=== PATIENT | male | born 1960 | race Caucasian/White ===

== ENCOUNTER 2019-07-05 21:38 | Emergency (ER) | payer BC ==
--- OUTSIDE RECORDS SUMMARY | 2019-07-05 21:41 | XMS REPORT ---
:1960 Author Organization [facility] Address [address] [place] [address] [address]. [address] [place] [address] Care Team Providers Name Role Phone Unavailable Unavailable Unavailable Payers Payer Name Policy Type Policy Number Effective Date Expiration Date Problems This patient has no known problems. Allergies, Adverse Reactions, Alerts Allergy Allergy Status Severity Reaction(s) Onset Inactive Treating Comments Name Type Date Date Clinician No Known DA Active U 2018-04 Allergies -30 00:00:0 0 No Known DA Active U 2018-04 Allergies -27 00:00:0 0 Medications This patient has no known medications. Results Test Description Test Time Test Comments Text Results Atomic Results Result Comments SURGICAL 2018-05-20 RUN DATE: SPECIMENS 07:45:00 05/20/18 [facility] *LIVE* PAGE 1 RUN TIME: 744 Specimen Inquiry RUN USER: INTERFACE PATIENT: EDIN DU LOC: CR #: [id number] AGE/SX: 58/M ROOM: RE05/14/18REG DR: Juan Carlos Sterling III : 62 BED: DIS: [place] [facility] [place] SPEC #: [id number] RECD: 05/17/18 STATUS: [facility] # : [id number] [place]: 05/17/[address] [facility] [address]: Juan Carlos Sterling III, MD ENTERED: 05/19/18 SP TYPE: SURG SPEC OTHR DR: Frederick Vale MD ORDERED: GM LEVEL 4 CODES: [id number] - NOSE, NOS COPIES TO: Frederick Vale MD [facility] [place], [place] [id number] Juan Carlos Sterling III, MD [address] [place] [address] [address] [place], [place] [address] PROCEDURES: GM LEVEL 4 ( Incomplete) TISSUES: 1. NOSE, NOS - Nasal cavity, septum 2. NOSE, NOS - Nasal cavity, inferior turbinate FINAL DIAGNOSIS Nasal cavity, septum: Gross examination only. Nasal cavity, inferior turbinate: Chronic sinusitis. GROSS AND MICROSCOPIC GROSS EXAMINATION: Received in formalin labeled nasal septum is a 2.2 cm aggregate of fibrocartilaginous tissue, gross examination only. Received in formalin labeled inferior turbinates is a 1.1 cm aggregate of anthony-carter tissue fragments submitted in one cassette. MICROSCOPIC EXAMINATION: Sections of the inferior turbinate reveal portions of respiratory epithelium with thickened basement membranes and mild chronic inflammation. CONTINUED ON NEXT PAGE RUN DATE: 05/20/18 [facility] *LIVE* PAGE 2 RUN TIME: 0745 Specimen Inquiry RUN USER: INTERFACE SPEC #: [id number] PATIENT: EDIN DU #[id number] (Continued) POST-OP DIAGNOSIS Sinusitis, mika bullosa PRE-OP DIAGNOSIS Sinusitis, mika bullosa Signed SIGNATURE ON Kai Ireland DO 0745 END OF REPORT
[2019-07-05] MEDS ORDERED: DIAZEPAM 5 MG TABLET ONE (23:35)
[2019-07-05] MEDS ORDERED: HYDROCODONE/APAP 7.5/325 MG TAB ONE (23:36)
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
[2019-07-06] MEDS ORDERED: KETOROLAC 30 MG/ML INJ ONE (02:05)
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
[2019-07-06 17:19] VITALS: TEMP 97.4
[2019-07-06 17:24] VITALS: O2SAT 100
[2019-07-06 17:26] VITALS: BP 142/72
== END 2019-07-06 02:37 | disposition home or self-care (01) ==
LOC: ER 21:38
DX: M54.12 Radiculopathy, cervical region (principal); M54.5 Low back pain; E78.00 Pure hypercholesterolemia, unspecified; V59.40XA Driver of pick-up truck or van injured in collision with unspecified motor vehicles in traffic accident, initial encounter
CPT/HCPCS: 70450; 71250; 72125; 96372; 99283

== ENCOUNTER 2020-07-28 01:45 | Emergency (ER) | payer BC ==
[2020-07-28] MEDS ORDERED: TRAMADOL HCL 50 MG TAB ONE ×2 (02:30→02:32)
[2020-07-28] MEDS ORDERED: TETANUS & DIPHTHERIA TOX,ADULT 0.5 ML VIAL ONE (03:11)
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
[2020-07-28] MEDS ORDERED: AMOX/K CLAV 875 MG TAB ONE (03:53)
[2020-07-28] MEDS ORDERED: MUPIROCIN 2% OINT 22GM TUBE TOP ONE (03:54)
[2020-07-28 04:00] VITALS: TEMP 98.7
[2020-07-28 04:01] VITALS: BP 168/72; O2SAT 98
--- NOTE | 2020-07-28 11:48 | RAD REPORT ---
EXAM DESCRIPTION: RAD - Foot Left 2 View - 07/28/2020 2:24 am CLINICAL HISTORY: PAIN COMPARISON: No comparisons FINDINGS: Lucency is seen in the distal phalanx of the great toe, likely nondisplaced fracture. Mild adjacent soft tissue swelling is evident. Mild soft tissue swelling is seen along the dorsum of the foot. Elsewhere no acute fracture or dislocation is present. Small calcaneal spurs are evident.
== END 2020-07-28 03:54 | disposition home or self-care (01) ==
LOC: ER 01:45
DX: S00.412A Abrasion of left ear, initial encounter (principal); Y04.1XXA Assault by human bite, initial encounter; Y93.9 Activity, unspecified; Y92.89 Other specified places as the place of occurrence of the external cause; Z23 Encounter for immunization
CPT/HCPCS: 90471; 90714; 99284

== ENCOUNTER 2023-04-30 09:42 | Day surgery (SDC) | payer BC ==
[2023-04-30] MEDS ORDERED: GLYCOPYRROLATE 0.2 MG/ML SYR ONE ×2 (10:16→12:22)
[2023-04-30] MEDS ORDERED: Ringers Lactate 1,000 ML IV ONE (10:17)
[2023-04-30] MEDS ORDERED: propofoL 200 MG/20 ML VIAL IV ONE ×2 (12:11→12:36)
[2023-04-30] MEDS ORDERED: LIDOCAINE 1% MPF 5 ML VIAL ONE (12:11)
[2023-04-30] MEDS ORDERED: LIDOCAINE 1% MPF 30 ML VIAL ONE (12:15)
--- NOTE | 2023-04-30 13:19 | RAD REPORT ---
EXAM DESCRIPTION: RAD - FLUORO-GUIDE FOR BRONCH UPT1HR - 04/30/2023 12:57 pm CLINICAL HISTORY: R59.9 COMPARISON: None available. FINDINGS: Three Images were sent to PACS, documenting image guided bronchoscopy. No radiologist was available for the procedure, nor will any image interpretation he provided. Please refer to the proce dural report for additional details. Fluoroscopy time: 181.4 seconds. Skin dose: 30.4 mGy IMPRESSION: Documentation of fluoroscopy utilization as above.
[2023-04-30 13:35] VITALS: O2SAT 100
[2023-04-30 13:37] VITALS: BP 113/83; TEMP 98.1
--- NOTE | 2023-04-30 13:58 | RAD REPORT ---
EXAM DESCRIPTION: RADChest Single View04/30/2023 1:41 pm CLINICAL HISTORY: R/O PNEUMOTHORAX, S/P BRONCHOSCOPY COMPARISON: Chest Pa And Lat (2 Views) dated 06/10/2022; CHEST SINGLE VIEW dated 11/03/2013; CHEST PA AND LAT 2 VIEW dated 12/15/2012; FLUORO-GUIDE FOR BRONCH UPT1HR dated 04/30/2023 TECHNIQUE: Portable AP view of the chest. FINDINGS: Central interstitial prominence. Wedge-shaped peripheral right upper to mid lung airspace opacity, may relate to atelectasis, or possibly an underlying mass. No recent prior imaging available for comparison for this finding. No pneumothorax or effusion. The cardiomediastinal contours are un remarkable. IMPRESSION: No pneumothorax. Peripheral right upper to midlung wedge-shaped opacity. Mild central co ngestion.
--- NOTE | 2023-05-14 16:18 | P.OP ---
Date of Service: 04/30/23 (Bronchoscopy with RUL BAL, TBX) Findings and Operative Technique AGe 62 evaluated by me for ILD and adenopathy After obtaining and informed consent from patient was premedicated by anesthesia Finding Normal bronchoscopy Specimens RUL endo bronch and TBX biopies and BAL Complications Significant nasal bleeding, Apneas Discharged home no pneumothorax
== END 2023-04-30 14:10 | disposition home or self-care (01) ==
LOC: OR 09:42
PROVIDERS: ATTEND Internal Medicine Sleep Medicine
PROC: 0B9C8ZX Drainage of Right Upper Lung Lobe, Via Natural or Artificial Opening Endoscopic, Diagnostic (ICD-10-PCS; 2023-04-30)
PROC: 0BDC8ZX Extraction of Right Upper Lung Lobe, Via Natural or Artificial Opening Endoscopic, Diagnostic (ICD-10-PCS; principal; 2023-04-30 12:00)
DX: J81.1 Chronic pulmonary edema (principal); R04.89 Hemorrhage from other sites in respiratory passages; R59.9 Enlarged lymph nodes, unspecified
CPT/HCPCS: 31624; 31628; 87070; 88108; 88305 ×2; 87077 ×2; 87186 ×2; 87015; 87206; 87116; 87102; 71045; 76000; J2704 ×2; J2001 ×2; J7120